=== PATIENT | male | born 1960 | race Caucasian/White ===

== ENCOUNTER 2022-04-22 14:59 | Emergency (ER) | payer BC ==
[2022-04-22] MEDS ORDERED: Morphine 4 MG/ML VIAL ONE (16:52)
[2022-04-22] MEDS ORDERED: Ketorolac Tromethamine 30 MG/ML VIAL ONE (16:52)
== END 2022-04-22 18:08 | disposition home or self-care (01) ==
LOC: CSHERS 14:59
DX: S22.32XA Fracture of one rib, left side, initial encounter for closed fracture (principal); E11.9 Type 2 diabetes mellitus without complications; I25.2 Old myocardial infarction; E78.5 Hyperlipidemia, unspecified; I10 Essential (primary) hypertension; F17.210 Nicotine dependence, cigarettes, uncomplicated; W18.30XA Fall on same level, unspecified, initial encounter
CPT/HCPCS: 71046; 96374; 96375; J1885; J2270

== ENCOUNTER 2023-01-16 12:37 | Emergency (ER) | payer BC ==
[2023-01-16] MEDS ORDERED: Lidocaine 1% (PF) 30 ML VIAL ONE (14:41)
[2023-01-16] MEDS ORDERED: Bacitracin 1 PK ONE (14:45)
== END 2023-01-16 15:11 | disposition home or self-care (01) ==
LOC: CSHERS 12:37
DX: S61.216A Laceration without foreign body of right little finger without damage to nail, initial encounter (principal); S81.811A Laceration without foreign body, right lower leg, initial encounter; Z87.891 Personal history of nicotine dependence; I10 Essential (primary) hypertension; W22.8XXA Striking against or struck by other objects, initial encounter
CPT/HCPCS: 12005; J2001